=== PATIENT | male | born 1975 | race Caucasian/White ===

== ENCOUNTER 2018-11-11 14:31 | Emergency (ER) | payer BC ==
[2018-11-11 14:38] VITALS: TEMP 98.6; BMI 34.3
--- NOTE | 2018-11-11 14:52 | PDOC ---
History of Present Illness - General Chief Complaint: Pain, Acute Stated Complaint: LEFT ELBOW PAIN Time Seen by Provider: 11/11/18 14:34 History Source: Patient Exam Limitations: No Limitations - History of Present Illness Initial Comments: 11/11/18 15:23 43 yo LHD Harrison presenting to the ER with a complaint of left elbow pain Symptoms began 2 months ago, s/p assisting a friend with a move from the [facility] Pt noted after that, he had left lateral elbow pain No direct trauma Pain eventually resolved but several days ago, he did laundry (heavy lifting) and noted elbow pain again Pain is sharp, located in the left lateral elbow Worse with extending the arm/elbow No alleviating factors no skin changes No fevers or chills pt is able to range his arm He has difficulty with simple tasks - lifting light objects, brushing his hair PMH: DM, HTN PSH: small intestine surgery Meds: please see MAR ALL: NKDA Social: denies alcohol, drug, cigarette use FH: non contributory ROS: GENERAL/CONSTITUTIONAL: No: fever, chills, weakness, loss of appetite. HEAD, EYES, EARS, NOSE AND THROAT: No: change in vision CARDIOVASCULAR: No: chest pain, lightheadedness, palpitations, syncope RESPIRATORY: No: cough, shortness of breath, wheezing, hemoptysis, stridor. GASTROINTESTINAL: No: nausea, vomiting, diarrhea, abdominal pain. GENITOURINARY: No: dysuria, hematuria, frequency, urgency, flank pain. MUSCULOSKELETAL: Yes: lateral elbow pain No: back pain, neck pain SKIN AND BREASTS: No: lesions, pallor, rash or easy bruising. NEUROLOGIC: No: headache, vertigo, paresthesias, weakness ENDOCRINE: No: unexplained weight gain or loss HEMATOLOGIC/LYMPHATIC: No: anemia, easy bleeding, swelling nodes. PE: GENERAL: The patient is in no acute distress. HEAD: Normal with no signs of trauma. EYES: PERRLA, EOMI, sclera anicteric, conjunctiva clear. ENT: Ears normal, nares patent, oropharynx clear without exudates. Moist mucous membranes. NECK: Normal range of motion, supple LUNGS: Breath sounds equal, clear to auscultation bilaterally. No wheezes, and no crackles. HEART:Regular rate and rhythm, normal S1 and S2 without murmur, rub or gallop. ABDOMEN: Soft, nontender, normoactive bowel sounds. No guarding, no rebound. No masses palpable. EXTREMITIES: Normal range of motion, no edema. No clubbing or cyanosis. No erythema, or tenderness. NEUROLOGICAL: Cranial nerves II through XII grossly intact. Normal speech. No focal neurological deficits. MUSCULOSKELETAL: Able to range elbow, tender over the lateral epycondyle, ? swelling No erythema SKIN: Warm, Dry, normal turgor, no rashes or lesions noted. Past History - Past Medical History Allergies/Adverse Reactions: Allergies Allergy/AdvReac Type Severity Reaction Status Date / Time No Known Allergies Allergy Verified 11/11/18 14:31 Home Medications: Ambulatory Orders Amlodipine Besylate [Norvasc -] 10 mg PO DAILY #7 tab 03/03/16 Metoprolol Succinate [Toprol Xl] 50 mg PO DAILY #7 tab 03/03/16 COPD: No Diabetes: Yes HTN: Yes - Surgical History Abdominal Surgery: Yes (SMALL INTESTINE) - Suicide/Smoking/Psychosocial Hx Smoking History: Never smoked Hx Alcohol Use: No Drug/Substance Use Hx: No *Physical Exam - Vital Signs Last Vital Signs Temp Pulse Resp BP Pulse Ox 98.6 F 101 H 19 161/113 H 100 11/11/18 14:31 11/11/18 14:31 11/11/18 14:31 11/11/18 14:31 11/11/18 14:31 Medical Decision Making - Medical Decision Making 11/11/18 15:29 Will do xray Will give motrin Pt can be discharged to home Pt to get brace for comfort Pt needs to follow up with PMD and Ortho *DC/Admit/Observation/Transfer Diagnosis at time of Disposition: Elbow pain, left - Discharge Dispostion Disposition: HOME Condition at time of disposition: Stable Decision to Admit order: No - Referrals Referrals: Moustapha Metz MD [Staff Physician] - - Patient Instructions Printed Discharge Instructions: Lateral Epicondylitis, DI for Lateral Epicondylitis (Tennis Elbow), DI for Elbow Pain Additional Instructions: Mr Guerrier Thank you for coming in to the ER today Return to the emergency department immediately with ANY new, persistent or worsening symptoms. Continue any medications as previously prescribed by your physician. You should follow up with your primary doctor AND the human resources specialist as soon as possible regarding today's emergency department visit. You can take motrin or Tylenol for pain Please make sure your doctor reviews the results of your emergency evaluation. Thank you for coming to the [facility] today for your care. It was a pleasure to see you today. Please note that your evaluation is INCOMPLETE until you follow-up with your doctor. - Post Discharge Activity Forms/Work/School Notes: Back to Work
[2018-11-11 16:33] VITALS: BP 160/93; PULSE 73
== END 2018-11-11 15:38 | disposition home or self-care (01) ==
LOC: EDSEX → FER 14:31
DX: M25.522 Pain in left elbow (principal); I10 Essential (primary) hypertension; E11.9 Type 2 diabetes mellitus without complications
CPT/HCPCS: 73070-TC-LT-FY; 99282-25

== ENCOUNTER 2021-01-11 04:23 | Day surgery (SDC) | payer OTHER ==
[2021-01-09 14:42] VITALS: BMI 35.2
[~2021-01-11 04:23] MED LIST: BUPIVACAINE HCL/PF 0.75% 10 ML VIAL NR ONE; IOHEXOL 180 MG/1 ML ML IJ ONE; LIDOCAINE HCL 1% PRESERVATIVE FREE - 30ML VIAL IJ ONE
[2021-01-11] MEDS ORDERED: BUPIVACAINE HCL/PF 0.75% 10 ML VIAL ONE ×2 (07:26→11:34)
[2021-01-11] MEDS ORDERED: LIDOCAINE HCL/PF 1% SDV 5ML VIAL ONE (07:26)
[2021-01-11] MEDS ORDERED: LIDOCAINE HCL 1% PRESERVATIVE FREE - 30ML VIAL IJ ONE (11:54)
[2021-01-11] MEDS ORDERED: IOHEXOL 180 MG/1 ML ML IJ ONE (11:57)
[2021-01-11] MEDS ORDERED: BUPIVACAINE HCL/PF 0.75% 10 ML VIAL NR ONE (11:59)
[2021-01-11 12:48] VITALS: PULSE 78
[2021-01-11 13:15] VITALS: BP 130/80
[2021-01-11 13:25] VITALS: TEMP 98.2
== END 2021-01-11 13:25 | disposition home or self-care (01) ==
LOC: JASU-SURG 04:23
PROVIDERS: ATTEND Pain Medicine Pain Medicine
PROC: 3E0T33Z Introduction of Anti-inflammatory into Peripheral Nerves and Plexi, Percutaneous Approach (ICD-10-PCS; 2021-01-11)
PROC: 3E0T3BZ Introduction of Anesthetic Agent into Peripheral Nerves and Plexi, Percutaneous Approach (ICD-10-PCS; principal; 2021-01-11 11:00)
DX: M47.816 Spondylosis without myelopathy or radiculopathy, lumbar region (principal)
CPT/HCPCS: 76000-TC-FY

== ENCOUNTER 2023-10-22 04:09 | Day surgery (SDC) | payer OTHER ==
[2023-10-16 16:07] VITALS: BMI 34.3
[2023-10-22] MEDS ORDERED: BUPIVACAINE HCL/PF 0.75% 10 ML VIAL ONE (07:29)
[2023-10-22] MEDS ORDERED: LIDOCAINE HCL/PF 1% SDV 5ML VIAL ONE (07:29)
[2023-10-22 08:14] VITALS: RESP 18
[2023-10-22] MEDS: LIDOCAINE HCL 1% PRESERVATIVE FREE - 30ML VIAL IJ ONE (11:32)
[2023-10-22] MEDS: BUPIVACAINE HCL/PF 0.75% 10 ML VIAL NR ONE (11:34)
[2023-10-22 12:47] VITALS: TEMP 97.8
[2023-10-22 12:49] VITALS: BP 129/91; PULSE 78
[2023-10-22] MEDS ORDERED: ACETAMINOPHEN 500 MG TABLET (FP) PO PRN (16:40)
== END 2023-10-22 12:22 | disposition home or self-care (01) ==
LOC: JASU-SURG 04:09
PROVIDERS: ATTEND Pain Medicine Pain Medicine
PROC: 3E0T33Z Introduction of Anti-inflammatory into Peripheral Nerves and Plexi, Percutaneous Approach (ICD-10-PCS; 2023-10-22)
PROC: 3E0T3BZ Introduction of Anesthetic Agent into Peripheral Nerves and Plexi, Percutaneous Approach (ICD-10-PCS; principal; 2023-10-22 09:45)
DX: M47.816 Spondylosis without myelopathy or radiculopathy, lumbar region (principal)
CPT/HCPCS: 76000-TC-FY

== ENCOUNTER 2023-12-24 04:29 | Day surgery (SDC) | payer OTHER ==
[2023-12-22 14:36] VITALS: BMI 34.3
[2023-12-24] MEDS ORDERED: BUPIVACAINE HCL/PF 0.75% 10 ML VIAL ONE ×2 (08:00→12:18)
[2023-12-24] MEDS ORDERED: LIDOCAINE HCL/PF 1% SDV 5ML VIAL ONE (08:00)
[2023-12-24] MEDS ORDERED: LIDOCAINE HCL/PF 2% SDV 5ML VIAL ONE (08:01)
[2023-12-24] MEDS ORDERED: DEXAMETHASONE SOD PHOSPHATE 10 MG/1 ML VIAL ONE (08:01)
[2023-12-24] MEDS ORDERED: LIDOCAINE HCL 2% (20ML MULTI-DOSE VIAL) ONE (12:18)
[2023-12-24] MEDS: LIDOCAINE 1% P/F 10 MG/ML VIAL PNB ONE ×3 (12:40)
[2023-12-24] MEDS: BUPIVACAINE HCL/PF 0.75% 10 ML VIAL NR ONE ×2 (12:40)
[2023-12-24] MEDS: LIDOCAINE HCL/PF 2% SDV 5ML VIAL PNB ONE ×3 (12:40)
[2023-12-24 13:20] VITALS: BP 122/81; PULSE 86; RESP 18; TEMP 97.2
[2023-12-24] MEDS ORDERED: ACETAMINOPHEN 500 MG TABLET (FP) PO PRN (19:30)
== END 2023-12-24 13:02 | disposition home or self-care (01) ==
LOC: JASU-SURG 04:29
PROVIDERS: ATTEND Pain Medicine Pain Medicine
PROC: 015B3ZZ Destruction of Lumbar Nerve, Percutaneous Approach (ICD-10-PCS; principal; 2023-12-24 12:29)
DX: M47.816 Spondylosis without myelopathy or radiculopathy, lumbar region (principal)
CPT/HCPCS: 76000-TC-FY; J1100

== ENCOUNTER 2024-01-21 04:28 | Day surgery (SDC) | payer OTHER ==
[2024-01-18 09:55] VITALS: BMI 33.5
[2024-01-21 06:58] VITALS: RESP 20
[2024-01-21] MEDS ORDERED: LIDOCAINE HCL/PF 1% SDV 5ML VIAL ONE (07:13)
[2024-01-21] MEDS ORDERED: LIDOCAINE HCL/PF 2% SDV 5ML VIAL ONE (07:13)
[2024-01-21] MEDS ORDERED: BUPIVACAINE HCL/PF 0.75% 10 ML VIAL ONE (07:13)
[2024-01-21] MEDS ORDERED: DEXAMETHASONE SOD PHOSPHATE 10 MG/1 ML VIAL ONE (07:13)
[2024-01-21] MEDS: LIDOCAINE HCL 1% PRESERVATIVE FREE - 30ML VIAL IJ ONE ×2 (08:28)
[2024-01-21] MEDS: LIDOCAINE HCL/PF 2% SDV 5ML VIAL INF ONE ×2 (08:34)
[2024-01-21] MEDS: BUPIVACAINE HCL/PF 0.75% 10 ML VIAL NR ONE ×2 (08:42)
[2024-01-21] MEDS: DEXAMETHASONE SOD PHOSPHATE 10 MG/1 ML VIAL IM ONE ×2 (08:42)
[2024-01-21 09:02] VITALS: BP 130/90; PULSE 81; TEMP 98.9
[2024-01-21] MEDS ORDERED: ACETAMINOPHEN 500 MG TABLET (FP) PO PRN (11:07)
== END 2024-01-21 09:29 | disposition home or self-care (01) ==
LOC: JASU-SURG 04:28
PROVIDERS: ATTEND Pain Medicine Pain Medicine
PROC: 015B3ZZ Destruction of Lumbar Nerve, Percutaneous Approach (ICD-10-PCS; principal; 2024-01-21 08:15)
DX: M47.816 Spondylosis without myelopathy or radiculopathy, lumbar region (principal)
CPT/HCPCS: 76000-TC-FY; J1100